=== PATIENT | female | born 1985 | race Caucasian/White ===

== ENCOUNTER 2018-09-06 13:07 | Emergency (ER) | payer MEDICAID, OTHER ==
[~2018-09-06] VITALS: Ht 154.9 cm; Wt 47.0 kg
[2018-09-06 13:36] VITALS: BP 115/75
[2018-09-06] MEDS ORDERED: LORA1TAB PO (13:41)
== END 2018-09-06 13:58 | disposition home or self-care (01) ==
LOC: ER 13:08
DX: F15.10 Other stimulant abuse, uncomplicated (principal); F12.90 Cannabis use, unspecified, uncomplicated; F17.210 Nicotine dependence, cigarettes, uncomplicated
CPT/HCPCS: 99283